=== PATIENT | female | born 1970 | race Caucasian/White ===

== ENCOUNTER 2017-04-09 08:56 | Emergency (ER) | payer BC ==
[2017-04-09 09:09] VITALS: BP 120/60
--- NOTE | 2017-04-09 09:53 | UC ---
Throat Pain/Nasal Justino HPI - HPI Summary HPI Summary: Pt presents to with complaint of 48 hours sore throat and painful swallowing. Pt also reports progessive left ear pain. Pt has taken tylenol cold and flu with mild improvement - last dose this morning. No rash. temp 100 + painful swallowing. + po - less than baseline second to discomfort. Pt is a diabetic. States sugars have been well controlled. No known sick contacts Pt's medications reviewed this visit - History of Current Complaint Chief Complaint: UCRespiratory Stated Complaint: SORE THROAT Time Seen by Provider: 04/09/17 09:28 Hx Obtained From: Patient Hx Last Menstrual Period: unknown, uterine ablation ?: No Onset/Duration: Gradual Onset Severity: Mild - Allergies/Home Medications Allergies/Adverse Reactions: Allergies Allergy/AdvReac Type Severity Reaction Status Date / Time No Known Allergies Allergy Verified 04/09/17 09:09 Home Medications: Home Medications Montelukast Sodium TAB* [Singulair TAB*] 10 mg PO DAILY 04/09/17 [History Confirmed 04/09/17] PMH/Surg Hx/FS Hx/Imm Hx Previously Healthy: No Endocrine History: Diabetes Cardiovascular History: Hypertension, Other Other Cardiovascular History: hld - Surgical History Surgical History: Yes Surgery Procedure, Year, and Place: cone biopsy 2011. . tubal ligation. uterine ablation - Family History Known Family History: Positive: Hypertension - Social History Occupation: Employed Full-time Lives: With Family Alcohol Use: None Substance Use Type: None Smoking Status (MU): Former Smoker When Did the Patient Quit Smoking/Using Tobacco: 17 years ago Review of Systems Constitutional: Fever Skin: Negative ENT: Sore Throat, Ear Ache, Sinus Congestion Respiratory: Negative All Other Systems Reviewed And Are Negative: Yes Physical Exam Triage Information Reviewed: Yes Appearance: Well-Appearing, No Pain Distress, Well-Nourished Vital Signs: Initial Vital Signs Temp 98 F 04/09/17 09:05 Pulse 98 04/09/17 09:05 Resp 18 04/09/17 09:05 BP 120/60 04/09/17 09:05 Pulse Ox 97 04/09/17 09:05 Vital Signs Reviewed: Yes Eye Exam: Normal Eyes: Positive: Conjunctiva Clear ENT: Positive: Pharyngeal erythema, Nasal congestion, Tonsillar swelling, Tonsillar exudate, Uvula midline. Negative: Pharynx normal, Nasal drainage, Sinus tenderness Dental Exam: Normal Neck exam: Normal Neck: Positive: Supple, Nontender, No Lymphadenopathy Respiratory Exam: Normal Respiratory: Positive: Chest non-tender, Lungs clear, Normal breath sounds, No respiratory distress, No accessory muscle use Cardiovascular Exam: Normal Cardiovascular: Positive: RRR, No Murmur Abdominal Exam: Normal Abdomen Description: Positive: Nontender, No Organomegaly Bowel Sounds: Positive: Present Musculoskeletal Exam: Normal Neurological Exam: Normal Neurological: Positive: Alert Psychological Exam: Normal Skin Exam: Normal Throat Pain/Nasal Course/Dx - Course Assessment/Plan: Pt presents with 2 days progressive sore throat and left ear pain. Pt reports low grade temp. Pt with exduative tonsillitis. No resp/air compromise. + strep. trial of lidocaine. hdyrate. Amox. secertion precaution. pt requesting diflucan. pt declined work note - Differential Dx/Diagnosis Provider Diagnoses: strep pharyngitis Discharge - Discharge Plan Condition: Stable Disposition: HOME Prescriptions: Amoxicillin PO (*) [Amoxicillin 500 MG CAP*] 500 mg PO Q12H #20 cap Fluconazole [Diflucan 150 MG (NF)] 150 mg PO ONCE PRN #1 tab PRN Reason: yeast infection Patient Education Materials: Strep Throat (ED) Referrals: Christopher Hernandez MD [Primary Care Provider] - Additional Instructions: - Okay to alternate ibuprofen (Advil, Motrin) and Tylenol every 3 hours for pain. Take with food. Do NOT take for more than 4-5 days - Okay to gargle and spit every 4 hours as needed for pain - Stay well hydrated - frequent sips of cold fluids will be soothing to your throat (popsicles, jello, ice cream, ice water). Avoid excess caffeine until your symptoms have resolved. - Okay to gargle and spit with viscous lidocaine as prescribed for throat pain - Do not share eating, drinking utensils. Throw out your toothbrush when your symptoms resolved -Throat infections are spread by oral secretions - do not share eating or drinking utensils until you symptoms are resolved. Clean items that may get your secretions such as cell phones, ipads, computer mouse, television remotes After you have been on antibiotics, change your pillowcase and your toothbrush - You have been given a prescription for diflucan - okay to use if you develop a yeast infection related to your antibiotics - Contact your doctor to arrange a follow-up appointment as needed.
[2017-04-09] MEDS ORDERED: Lidocaine 2% VISCOUS* 15 ML UDC PO ONE (09:58)
== END 2017-04-09 10:14 | disposition home or self-care (01) ==
LOC: UCCORT 08:56
DX: J02.0 Streptococcal pharyngitis (principal); E11.9 Type 2 diabetes mellitus without complications; Z87.891 Personal history of nicotine dependence
CPT/HCPCS: 87651; 99212; G0463

== ENCOUNTER 2023-09-01 17:20 | Inpatient (IN) ==
[2023-09-01] MEDS: Albuterol/Ipratropium NEB.SOL (2.5/0.5 MG) 3 ML NEB.SOLN INH ONE (17:58)
[2023-09-01] MEDS: Acetaminophen IV 1 GM/100ML 1,000 MG/100 ML BAG IV ONE (18:06)
[2023-09-01] MEDS: methylPREDNISolone SOD SUCC 125 mg 2 ML VIAL IV ONE (18:07)
[2023-09-01 18:11] LABS: ABS Lymphocytes 0.9 10^3/uL (1.0-4.8); ABS Neutrophils 11.6 10^3/uL (1.5-7.6); ABS Nucleated RBC 0.01 10^3/ul; Eosinophil % 0.1 %; Hematocrit 38.1 % (35-45); Hemoglobin 12.9 g/dL (11.5-14.3); Lymphocyte % 6.3 %; Mean Corpuscular Hgb Conc 33.8 g/dL (31-36); Mean Corpuscular Volume 91.9 fL (80-97); Mean Platelet Volume 9.1 fL (7.5-11.2); Nucleated Red Blood Cells % 0.1 %/100WBC (0.0-0.8); Platelet Count 218 10^3/uL (150-450); Red Blood Count 4.15 10^6/uL (3.63-4.92); White Blood Count 13.5 10^3/uL (3.8-11.8)
[2023-09-01 18:12] LABS: PCO2 Arterial 28 mmHg (35-45); PO2 Arterial 84 mmHg (80-100)
[2023-09-01 18:49] LABS: ALT 37 U/L (7-52); AST 40 U/L (13-39); Albumin 3.9 g/dL (3.2-5.2); Albumin/Globulin Ratio 1.3 (1-3); Alkaline Phosphatase 123 U/L (35-149); Anion Gap 13 mmol/L (2-16); Blood Urea Nitrogen 11 mg/dL (6-24); CO2 Carbon Dioxide 20 mmol/L (22-32); Chloride 100 mmol/L (101-111); Creatinine, Serum 0.75 mg/dL (0.51-0.95); Globulin 2.9 g/dL (2-4); Glucose 159 mg/dL (70-100); Lipase < 10 U/L (11.0-82.0); Magnesium 1.7 mg/dL (1.9-2.7); Sodium 133 mmol/L (135-145); Total Bilirubin 1.3 mg/dL (0.2-1.0); Total Protein 6.8 g/dL (6.4-8.9); eGFR CKD-EPI 96.3 (>60)
[2023-09-01] MEDS: Piperacillin/Tazobac 3.375 BAG 3.375 GM/100 ML BAG IV ONE (20:58)
[2023-09-01] MEDS: Iodixanol (CONTRAST) 320 MG/ML 100 ML SDV IV ONE (21:08)
[2023-09-01] MEDS ORDERED: Ondansetron ODT 4 mg TAB 4 MG TAB PO PRN (23:38)
[2023-09-01] MEDS ORDERED: Albuterol/Ipratropium NEB.SOL (2.5/0.5 MG) 3 ML NEB.SOLN INH PRN (23:59)
[2023-09-02 00:18] LABS: Creatine Kinase 71 U/L (10-223)
[2023-09-02] MEDS: Furosemide 40 mg/4 ml IV VIAL IV SLOW PU ONE (00:57)
[2023-09-02] MEDS: Azithromycin 500 mg/250 ml NS 500 MG/250 ML BAG IVPB SCH (02:52)
[2023-09-02] MEDS: cefTRIAXone 1 gm/50 mL D5W 1 GM/50 ML BAG IV SCH (05:45)
[2023-09-02 06:06] LABS: ABS Lymphocytes 0.7 10^3/uL (1.0-4.8); ABS Monocytes 0.6 10^3/uL (0.0-0.9); ABS Neutrophils 9.6 10^3/uL (1.5-7.6); ABS Nucleated RBC 0.01 10^3/ul; Hematocrit 36.3 % (35-45); Hemoglobin 12.6 g/dL (11.5-14.3); Lymphocyte % 6.1 %; Mean Corpuscular Hemoglobin 31.8 pg (27-33); Mean Corpuscular Hgb Conc 34.7 g/dL (31-36); Mean Corpuscular Volume 91.5 fL (80-97); Mean Platelet Volume 8.9 fL (7.5-11.2); Platelet Count 222 10^3/uL (150-450); Red Blood Count 3.97 10^6/uL (3.63-4.92); Red Cell Distribution Width 13.8 % (12-17); White Blood Count 10.9 10^3/uL (3.8-11.8)
[2023-09-02 07:32] LABS: Anion Gap 8 mmol/L (2-16); Blood Urea Nitrogen 11 mg/dL (6-24); CO2 Carbon Dioxide 24 mmol/L (22-32); Calcium 8.7 mg/dL (8.6-10.3); Chloride 103 mmol/L (101-111); Creatinine, Serum 0.79 mg/dL (0.51-0.95); Glucose 128 mg/dL (70-100); Sodium 135 mmol/L (135-145); eGFR CKD-EPI 90.5 (>60)
[2023-09-02] MEDS: SPIRIVA Respimat (tiotropium) 2.5 mcg/inh Inhaler INH SCH (08:13)
[2023-09-02 08:53] LABS: Magnesium 1.9 mg/dL (1.9-2.7)
[2023-09-02 09:12] LABS: C Reactive Protein 165.04 mg/L (<8.01)
[2023-09-03 08:58] LABS: Potassium, Whole Blood 3.9 mmol/L (3.4-4.5)
[2023-09-03 09:03] LABS: Calcium 8.9 mg/dL (8.6-10.3); Creatinine, Serum 0.92 mg/dL (0.51-0.95); Magnesium 1.9 mg/dL (1.9-2.7); eGFR CKD-EPI 75.4 (>60)
[2023-09-03 13:34] VITALS: BP 107/65
== END 2023-09-03 15:35 | disposition home or self-care (01) | DRG 720 ==
LOC: EDHOLD 17:20 → ED 17:20 → OBSVTOIN 23:31 → MED 09-02 07:46
PROVIDERS: ADMIT Student in an Organized Health Care Education/Training Program; ATTEND Student in an Organized Health Care Education/Training Program